=== PATIENT | female | born 1975 | race Caucasian/White ===

== ENCOUNTER 2023-08-25 13:51 | Outpatient (REF) | payer BC, SELFPAY | END 2023-08-25 13:52 | disposition home or self-care (01) | LOC: HO.HOSX 13:51 | PROVIDERS: Visit Provider Physician Assistant | DX: M54.12 Radiculopathy, cervical region (principal) | CPT/HCPCS: 72050 ==

== ENCOUNTER 2023-08-25 13:51 | Outpatient (AMB) | payer BC, SELFPAY ==
--- NOTE | 2023-08-25 14:20 | HO.SPINEOV ---
Intake Intake Visit Reasons: cervical radiculopathy Intake Note: Ms. Lindsay is here today c/o Rt. arm and hand numbness. MRI done @ [facility]. Design Architect Required: No Assessment & Plan Assessment & Plan (1) Cervical radiculopathy: Code(s): M54.12 - Radiculopathy, cervical region Plan Dear Dr Bee, Thank you for referring Mrs Lindsay to our office today. She is a very nice 47-year-old female underwent a C5-[address]plasty with Dr[address] Martinez a number of years ago. She did very well after the surgery until about a year and a half ago when she started to notice pain and numbness going down her arm into her medial forearm giving her pain in her thumb and index fingers well. In the time since the surgery she had a carpal tunnel release as well. This does not feel like that kind of discomfort it feels more like her cervical radiculopathy that she had before her original surgery. At this point she is trying to do [id number] medications such as Tylenol, Motrin, gabapentin, baclofen. She has not yet done any dedicated physical therapy or cortisone injections. She has been doing a home stretching and strengthening routine for cervical spine that she learned from previous physical therapist before her other surgery Her arm does feel weak at times. She had tried to get back into the [facility] system, but they told her there was nothing wrong with her MRI. The report suggests that there is indeed ongoing compression of the right C5-6 region with foraminal narrowing. She came to see us for 2nd opinion. PMH: She is otherwise healthy, she has had some minor back surgery, carpal tunnel release, meniscus surgery and tubal ligation Social hx: She does not smoke, she works as a respiratory therapist Medications: Gabapentin, baclofen, Ambien, Ativan, sertraline Allergies: No drug allergies Physical exam: Strength is intact, reflexes normal, no Velazquez's, no clonus. Gait is normal. Imaging review: Cervical MRI done at [facility] in April 2023 shows evidence of a disc arthroplasty at C5-6 with metallic artifact limiting the view somewhat. On the axial cuts does appear at C5-6 there is ongoing foraminal narrowing. I would rate it is moderate. There is no ongoing cord compression or signs of T2 signal change. Impression: 47-year-old respiratory therapist with previous C5-6 total disc arthroplasty presents for evaluation of what sounds like a right C6 radiculopathy going down into her thumb and index finger which is very similar to the symptoms she had before her original operation. It is becoming very cumbersome, gives her difficulty with sleeping and will she is at work. She has tried ccui-ebu-sfotann medications as well as gabapentin, baclofen. She is continuing to do range of motion and neck strengthening exercises that she learned from previous physical therapy before her 1st surgery. Nothing seems to be working and is only been getting steadily worse. She is interested in surgery. She has clear compression on the right C6 nerve at the C5-6 artificial disc level. We did a flexion-extension x-ray in the office and it did not show any signs of subluxation. We considered 2 options, either take out the old artificial disc and converted to a fusion but because of the amount of healing taking place at the endplates with the artificial disc this would require a substantial amount of bone removal. We think the better alternate option is a right C6 foraminotomy. Pt was given risk and benefits of surgery including but not limited to infection, hematoma , nerve injury,durotomy, weakness, persistent pain, as well as the option to continue with conservative treatment and patient wishes to proceed with surgery. Pt is aware they should stop their motrin, aspirin 7 days prior to surgery. All questions were answered to the best of our ability. If there is anything about this patients medical history that we have overlooked or concerns you have about us proceeding with surgery we would appreciate any input you can offer. Thank you for allowing us to care for your patient. The total time spent with this visit with this patient was 45 minutes reviewing history, physical exam, cervical spine imaging review, and implementation of treatment plan or further diagnostic testing Romeo Soler MD,PhD [facility] Orders: Orders XR cervical spine 4V Today M54.12 - Radiculopathy, cervical region Coding Level of Care Code New Pt Level 4 (38398) Diagnoses Cervical radiculopathy M54.12
== END 2023-08-25 15:56 | disposition home or self-care (01) ==
PROVIDERS: PCP Nurse Practitioner Family; Referring Provider Internal Medicine; Visit Provider Physician Assistant
DX: M54.12 Radiculopathy, cervical region (principal)
CPT/HCPCS: 99204